=== PATIENT | male | born 1995 | race Caucasian/White ===

== ENCOUNTER 2022-05-25 09:51 | Emergency (ER) | payer SELFPAY ==
[~2022-05-25] VITALS: Ht 170.2 cm; Wt 44.5 kg
[~2022-05-25 09:51] MED LIST: AMITRIPTYLINE10 MG PO; IBUPROFEN800 MG PO; NORCO 325 MG-51 TA1 PO; SKELAXIN400 MG PO; VIBRAMYCIN100 MG PO
[2022-05-25 10:47] LABS: BASO # 0.04 K/mm3 (0.02-0.10); EOS # 0.24 K/mm3 (0.04-0.40); EOS % 2.1 % (0.0-4.0); HEMATOCRIT 46.4 % (42.0-52.0); LYMPH# 3.46 K/mm3 (1.50-4.00); MEAN CELL VOLUME 87 fl (78-100); MEAN CORPUSCULAR HEMOGLOBIN 30 pg (27-31); MEAN CORPUSCULAR HGB CONC 35 g/dL (33-37); MEAN PLATELET VOLUME 9.3 fl (7.4-10.4); MONO # 0.75 K/mm3 (0.20-0.80); NEU # 7.17 K/mm3 (1.40-6.50); PLATELET COUNT 289 K/mm3 (130-400); RED BLOOD COUNT 5.36 M/mm3 (4.20-5.60); RED CELL DISTRIBUTION WIDTH 12.6 % (11.5-14.5); WHITE BLOOD COUNT 11.7 K/mm3 (4.8-10.8)
[2022-05-25 10:49] LABS: ALBUMIN 4.8 g/dL (3.5-5.0)
[2022-05-25 10:50] LABS: POTASSIUM 3.4 mmol/L (3.5-5.1)
[2022-05-25 10:52] LABS: TOTAL PROTEIN 7.8 g/dL (6.4-8.3)
[2022-05-25 10:54] LABS: TOTAL BILIRUBIN 1.7 mg/dL (0.2-1.2)
[2022-05-25 12:33] LABS: PH-URINE 5.5 (5.0 - 8.0); URINE APPEARANCE HAZY; URINE COLOR DK YELLOW; URINE PROTEIN(semi-quant) TRACE (NEGATIVE)
[2022-05-25 12:34] LABS: URINE BILIRUBIN NEGATIVE (NEGATIVE); URINE BLOOD NEGATIVE (NEGATIVE); URINE GLUCOSE NEGATIVE (NEGATIVE); URINE KETONE NEGATIVE (NEGATIVE); URINE LEUKOCYTE ESTERASE NEGATIVE (NEGATIVE); URINE MUCUS PRESENT (NOT PRESENT); URINE NITRATE NEGATIVE (NEGATIVE); URINE UROBILINOGEN NORMAL (NORMAL); URINE WBC 0-1 /hpf (0-3)
[2022-05-25 13:18] VITALS: BP 131/74
== END 2022-05-25 13:20 | disposition home or self-care (01) ==
LOC: ED 09:51
PROVIDERS: Family Medicine
DX: R42 Dizziness and giddiness (principal); Z28.310 Unvaccinated for COVID-19
CPT/HCPCS: J7030